=== PATIENT | male | born 1980 ===

== ENCOUNTER 2017-11-25 20:52 | Emergency (ER) | payer OTHER ==
[2017-11-25 21:27] VITALS: TEMP 98.2; O2SAT 99
--- NOTE | 2017-11-25 22:23 | ED PDOC ---
HPI: Back Time Seen by Provider: 11/25/17 22:11 Chief Complaint (Nursing): Back Pain History Per: Patient Additional Complaint(s): Pt. states on 07/15/2017 a 7 ton metal bucket accidentally fell on his back. States he was seen in [facility] ED where an x-ray and an MRI of his lower back were done. Pt. was told that everything was normal. He is currently seeing Dr. Rhys Ramsey (cycle specialist) and is in physical therapy. Pt. states today pain became worse and now pain is radiating down to his L foot. Has been taking ibuprofen without any relief. Denies incontinence, new trauma, hematuria , abdominal pain, weakness, fever. Past Medical History Reviewed: Historical Data, Nursing Documentation, Vital Signs Vital Signs: Last Vital Signs Temp 98.2 F 11/25/17 21:25 Pulse 79 11/25/17 21:25 Resp 18 11/25/17 21:25 BP 125/83 11/25/17 21:25 Pulse Ox 99 11/25/17 21:25 - Surgical History Surgical History: No Surg Hx - Family History Family History: States: No Known Family Hx - Home Medications Home Medications: Ambulatory Orders Medication Instructions Recorded Cyclobenzaprine [Cyclobenzaprine 10 mg PO Q8 PRN #10 tab 11/26/17 HCl] Naproxen [Naprosyn] 500 mg PO BID PRN #10 tab 11/26/17 - Allergies Allergies/Adverse Reactions: Allergies Allergy/AdvReac Type Severity Reaction Status Date / Time No Known Allergies Allergy Verified 11/25/17 21:25 Review of Systems ROS Statement: Except As Marked, All Systems Reviewed And Found Negative Musculoskeletal: Positive for: Back Pain Physical Exam - Physical Exam Appears: Positive for: Well, Non-toxic, No Acute Distress Skin: Positive for: Normal Color, Warm. Negative for: Rash Eye Exam: Positive for: Normal appearance Cardiovascular/Chest: Positive for: Regular Rate, Rhythm Respiratory: Positive for: CNT, Normal Breath Sounds Gastrointestinal/Abdominal: Positive for: Normal Exam, Soft. Negative for: Tenderness Back: Negative for: Normal Inspection (large swelling to lumbar area with mild tenderness (as per patient this swelling has been present since the injury and has remained the same size but bruising has resolved) back without warmth, erythema, induration or break in skin integrity), L CVA Tenderness, R CVA Tenderness, Vertebral Tenderness Extremity: Positive for: Normal ROM. Negative for: Calf Tenderness (b/l) Neurologic/Psych: Positive for: Alert, Oriented, Gait (steady, unassisted). Negative for: Aphasia, Facial Droop - Laboratory Results Result Diagrams: 11/25/17 22:25 11/25/17 22:25 - ECG O2 Sat by Pulse Oximetry: 99 - Progress ED Course And Treament: Labs, toradol 30mg IV, valium 10mg PO, CT lumbar spine w/ IV contrast ordered. 0005 CT LS spine w/ IV contrast: 8.5 x 5.7 x 6 cm fluid collection in the deep subcutaneous tissues of the low back posterior to the sacrum with mild inflammatory change in superficial subcutaneous fat; no acute osseous abnormality. Case d/w Dr. Perales who agrees with care and disposition. Due to consistent size, lack of warmth, redness, skin break down, fever, and elevation in WBC swelling is unlikely to be infectious in nature. Pt. informed of results and plan and agrees with care. Further reports pain has improved. Advised to f/u with Dr. Ramsey, pt.'s cycle specialist, for further evaluation. Pt. given a copy of CT report. Disposition - Clinical Impression Clinical Impression: Low back pain - Patient ED Disposition Is Patient to be Admitted: No - Disposition Referrals: Antonietta Nazario [Outside] Disposition: Routine/Home Disposition Time: 00:15 Condition: IMPROVED Additional Instructions: Follow up with Dr. Ramsey for further evaluation. Return to ED immediately if symptoms worsen. Prescriptions: Cyclobenzaprine [Cyclobenzaprine HCl] 10 mg PO Q8 PRN #10 tab PRN Reason: Muscle Spasm Naproxen [Naprosyn] 500 mg PO BID PRN #10 tab PRN Reason: Pain Instructions: Low Back Pain (DC) Forms: [employer] ([place]) Print Language: VIET[place]ESE
[2017-11-25] MEDS ORDERED: Iohexol 300 100 ML IJ ONE (22:26)
[2017-11-25] MEDS ORDERED: Sodium Chloride 0.9% 50 ML IV ONE (22:27)
[2017-11-25 22:36] LABS: BASO % 0.8 % (0.0-2.0); EOS # 0.1 K/uL (0.0-0.7); EOS % 2.7 % (0.0-4.0); HEMOGLOBIN 14.8 g/dL (12.0-18.0); LYMPH # 1.4 K/uL (1.0-4.3); LYMPH % 26.5 % (20.0-40.0); MEAN CELL VOLUME 86.1 fl (80.0-94.0); MEAN CORPUSCULAR HEMOGLOBIN 29.4 pg (27.0-31.0); MEAN CORPUSCULAR HGB CONC 34.1 g/dL (33.0-37.0); MEAN PLATELET VOLUME 7.9 fl (7.2-11.7); MONO # 0.4 K/uL (0.0-0.8); MONO % 7.8 % (0.0-10.0); NEUT # 3.4 K/uL (1.8-7.0); NEUT % 62.2 % (50.0-75.0); RBC 5.04 Mil/uL (4.40-5.90); RED CELL DISTRIBUTION WIDTH 12.6 % (11.5-14.5); WHITE BLOOD COUNT 5.4 K/uL (4.8-10.8)
[2017-11-25 22:42] LABS: URINE BILIRUBIN NEGATIVE (NEGATIVE); URINE BLOOD NEGATIVE (NEGATIVE); URINE CLARITY SLIGHTY-CLOUDY (Clear); URINE COLOR YELLOW (YELLOW); URINE GLUCOSE (UA) NEG (Normal); URINE LEUKOCYTE ESTERASE NEG Leu/uL (Negative); URINE PROTEIN NEGATIVE (NEGATIVE)
[2017-11-25 22:45] LABS: ALB/GLOB RATIO 1.2 (1.0-2.1); ALBUMIN 4.6 g/dL (3.5-5.0); ALT/SGPT 40 U/L (21-72); AST/SGOT 24 U/L (17-59); BLOOD UREA NITROGEN 15 mg/dl (9-20); CALCIUM 9.6 mg/dL (8.4-10.2); GFR AFRICAN-AMERICAN > 60; GFR NON-AFRICAN AMERICAN > 60
--- NOTE | 2017-11-26 00:02 | CT ---
EXAM: CT Lumbar Spine With Intravenous Contrast EXAM DATE/TIME: 11/25/2017 10:17 PM CLINICAL HISTORY: 37 years old, male; Signs and symptoms; Mass or lump in lumbosacral region; Patient HX: Blunt trauma, jul, 2017, now lump on lower back; Additional info: Blunt trauma 07/15/17; Back swelling TECHNIQUE: Axial computed tomography images of the lumbar spine with intravenous contrast. All CT scans at this facility use at least one of these dose optimization techniques: automated exposure control; mA and/or kV adjustment per patient size (includes targeted exams where dose is matched to clinical indication); or iterative reconstruction. Coronal and sagittal reformatted images were created and reviewed. COMPARISON: There are no prior studies for comparison. FINDINGS: Vertebrae: T12 vertebral body is incompletely imaged. Posterior elements are intact. 5 lumbar vertebral bodies are normal in height and alignment. Vertebral bodies are intact. Posterior elements are intact. There is mild posterior disc space narrowing L1/L2. There is mild disc bulging at L5/S1. There are no sacral fractures. Sacroiliac joints are patent. There is minimal sclerosis at the sacroiliac joints. There is spina bifida occulta at S1. Psoas and paraspinous muscles are symmetric. Discs/spinal canal/neural foramina: See above. Soft tissues: There is mild inflammation and edema in subcutaneous fat of the lower back greatest to the left of midline. There is an obliquely oriented fluid collection in the subcutaneous fat of the retrocecal soft tissues. Collection measures approximately 3.5 x 5.7 x 6.6 cm. From Retroperitoneal space: No acute abnormalities are seen in the retroperitoneum. IMPRESSION: 8.5 x 5.7 x 6 cm fluid collection in the deep subcutaneous tissues of the low back posterior to the sacrum with mild inflammatory change in superficial subcutaneous fat; no acute osseous abnormality
[2017-11-26 00:24] VITALS: BP 132/70; PULSE 82; RESP 16
== END 2017-11-26 00:22 | disposition home or self-care (01) ==
LOC: H.ER 20:52
DX: M54.5 Low back pain (principal)
CPT/HCPCS: 72132; 80053; 81003; 85025; 96374; 99282; J1885; Q9967